=== PATIENT | male | born 1930 | race Caucasian/White ===

== ENCOUNTER 2016-12-22 11:16 | Observation (INO) | payer MEDICARE, OTHER ==
[2016-12-22] MEDS ORDERED: ZYRTEC10 M7 PO (11:38)
[2016-12-22] MEDS ORDERED: XALATAN2.5 M1 OP (11:38)
[2016-12-22] MEDS ORDERED: SPIRIVA18 MC1 INH (11:38)
[2016-12-22] MEDS ORDERED: NASONEX17 G1 (11:38)
[2016-12-22] MEDS ORDERED: REGLAN10 M2 PO (11:39)
[2016-12-22] MEDS ORDERED: PROVENTIL HFA6.7 G1 INH (11:39)
[2016-12-22] MEDS ORDERED: ASPIRIN EC81 MG PO (11:40)
[2016-12-22] MEDS ORDERED: COZAAR50 M1 PO (11:40)
[2016-12-22] MEDS ORDERED: BETAPACE80 M2 PO (11:40)
[2016-12-22] MEDS ORDERED: PANTOPRAZOLE SO40 M3 PO (11:40)
[2016-12-22] MEDS ORDERED: VITAMIN D31000 UNI3 PO (11:41)
[2016-12-22] MEDS ORDERED: NITROSTAT0.4 M1 SL (11:42)
[2016-12-22] MEDS ORDERED: VENTOLIN HFA18 G2 PO (12:14)
[2016-12-22] MEDS ORDERED: SOTALOL80 M1 PO (12:16)
[2016-12-23 05:42] LABS: BASO % 0.3 % (0-2); EOSINOPHIL ABSOLUTE COUNT 0.1 tho/cmm (0.0-0.7); HCT-HEMATOCRIT 39.9 % (36.0-53.5); HGB-HEMOGLOBIN 13.7 gm/dl (13.5-17.0); IMMATURE GRANULOCYTES ABSOLUTE 0.02 tho/cmm (0-0.03); IMMATURE GRANULOCYTES PERCENT 0.3 % (0-0.3); LYMPH % 29.9 % (20-45); LYMPH ABSOLUTE COUNT 1.9 tho/cmm (0.8-4.5); MCH (MEAN CORPUSCULAR HGB) 33.7 pg (28.0-32.0); MCHC MEAN CORPUSCULAR HGB CONC 34.3 % (32.0-36.0); MEAN PLATELET VOLUME 9.8 cmc (9.4-12.4); MONO % 10.3 % (0-12); MONOCYTE ABSOLUTE COUNT 0.7 tho/cmm (0.0-1.2); NEUTROPHIL ABSOLUTE COUNT 3.7 tho/cmm (1.6-8.0); NEUTROPHIL-AUTOMATED 3.7 tho/cmm (1.6-8.0); NEUTROPHILS % 57.2 % (40-80); PLATELET COUNT 209 tho/cmm (150-450); RED BLOOD COUNT 4.07 mil/cmm (4.40-5.70); RED CELL DISTRIBUTION WIDTH 13.6 % (12.4-16.4); WHITE BLOOD COUNT 6.5 tho/cmm (4.0-10.0)
[2016-12-23 05:54] LABS: ANION GAP 11 mmol/L (0-20); BLOOD UREA NITROGEN 11 mg/dl (6-24); CALCIUM 8.8 mg/dl (8.5-10.5); CARBON DIOXIDE-VENOUS 29 mmol/L (22-32); CHLORIDE 107 mmol/l (96-110); CREATININE 1.03 mg/dl (0.60-1.30); GLUCOSE 91 mg/dL (70-110); SODIUM 143 mmol/L (135-145); eGFR VALUE FOR BLACK 75 mL/Min
[2016-12-23] MEDS ORDERED: TYLENOL325 M2 PO (12:37)
[2016-12-23] MEDS ORDERED: KEPPRA250 M1 PO (12:38)
[2016-12-23] MEDS ORDERED: MILK OF MAGNESIA PO (12:40)
== END 2016-12-23 13:48 ==
LOC: 5EB 11:16
PROVIDERS: Nurse Practitioner; ADMIT Hospitalist
DX: R41.89 Other symptoms and signs involving cognitive functions and awareness (principal); R42 Dizziness and giddiness; I10 Essential (primary) hypertension; E78.5 Hyperlipidemia, unspecified; K21.9 Gastro-esophageal reflux disease without esophagitis; D64.9 Anemia, unspecified; J44.9 Chronic obstructive pulmonary disease, unspecified; I25.10 Atherosclerotic heart disease of native coronary artery without angina pectoris; E55.9 Vitamin D deficiency, unspecified; M19.90 Unspecified osteoarthritis, unspecified site; R56.9 Unspecified convulsions; I49.5 Sick sinus syndrome; I47.1 Supraventricular tachycardia; Z79.82 Long term (current) use of aspirin; Z79.899 Other long term (current) drug therapy; Z88.2 Allergy status to sulfonamides; Z88.8 Allergy status to other drugs, medicaments and biological substances; Z86.73 Personal history of transient ischemic attack (TIA), and cerebral infarction without residual deficits; Z87.891 Personal history of nicotine dependence; Z85.46 Personal history of malignant neoplasm of prostate; Z90.49 Acquired absence of other specified parts of digestive tract; Z90.3 Acquired absence of stomach [part of]; Z90.89 Acquired absence of other organs; Z95.0 Presence of cardiac pacemaker; Z98.890 Other specified postprocedural states
CPT/HCPCS: G0378; G8978-GP-CI; G8979-GP-CH; G8980-GP-CI; G8987-GO-CI; G8988-GO-CI; G8989-GO-CI; J1650